=== PATIENT | female | born 1990 | race Caucasian/White ===

== ENCOUNTER 2017-04-08 20:01 | Emergency (ER) | payer OTHER ==
[~2017-04-08] VITALS: Ht 160 cm; Wt 70.3 kg
[~2017-04-08 20:01] MED LIST: DICLOXACILLIN500 M1 PO; ERYTHROMYCIN1 GM OPH; MOBIC 15MG15 MG PO; NOR-QD0.35 MG PO; VITAMIN D32000 I1 PO
[2017-04-08 20:10] VITALS: BP 109/68
== END 2017-04-08 21:28 | disposition admitted as inpatient to this hospital (09) ==
LOC: ERH 20:01
DX: N94.89 Other specified conditions associated with female genital organs and menstrual cycle (principal)